=== PATIENT | male | born 1945 | race Caucasian/White ===

== ENCOUNTER 2020-05-05 09:50 | Outpatient (CLI) | payer MEDICARE, BC ==
--- NOTE | 2020-05-05 14:16 | NM ---
Radionucleotide bone scan HISTORY: Prostate cancer. Initial staging. FINDINGS: Slightly increased degenerative type uptake is associated with each shoulder, knee, and the cervical spine. Small focus of uptake at the left face is in an area most commonly associated with paranasal sinus disease. No other areas of unusual uptake are apparent. IMPRESSION : No scintigraphic evidence of metastatic disease. Probable left ethmoid/maxillary sinus disease.
--- NOTE | 2020-05-08 12:44 | CT ---
EXAM: CT chest, abdomen, and pelvis with IV contrast: HISTORY: History prostate cancer with prior radiation therapy. Rising PSA. COMPARISON: None FINDINGS: CT THORAX: Lungs: Dependent atelectasis present. No pulmonary nodule or mass is identified. Pleura: No pleural effusion. Lymph nodes: No enlarged lymph nodes are seen by CT size criteria. Mediastinum: Vascular calcifications are seen in the thoracic aorta. Very small hiatal hernia is pres ent. Chest wall: No abnormalities CT ABDOMEN AND PELVIS: Liver: Enlarged in craniocaudal dimensions measuring 21.9 cm. Liver does demonstrate diminished atten uation relative to the spleen suggesting fatty infiltration. Subcentimeter rounded area of enhancement is seen near the dome of the liver which does appear contiguous with a vessel and probabl y represents a small vascular malformation. Gallbladder: Within normal limits. Pancreas: A 1.2 cm hypodense cystic lesion is seen involving the posterior aspect of the pancreas and the junction of the head and uncinate process of the pancreas. This is separate from the adjacent common duct which is normal in caliber. Spleen: Within normal limits. Adrenal glands: Within normal limits. Kidneys: A 2 mm hypodense lesion superior pole right kidney is present which is difficult to characte rize. There is also a lobulated hypodense lesion involving the midportion left kidney measuring 1.8 cm was suggestion of a thin septation within this cystic lesion. This cannot be characterized as a si mple cyst based on this examination. However, this lesion was seen on MRI examination 2019, and although incompletely imaged, demonstrated characteristics suggestive of a cyst on that exam. Nonobstructing 2 to 3 mm calculi are seen scattered in each kidney. There is mild caliectasis on the left of uncertain etiology. No ureteral calculus is utilized. Urinary Bladder: The urinary bladder is unremarkable. Reproductive organs: Within normal limits for patient's age. Bowel: Evidence of colonic diverticulosis with small to moderate amount retained fecal material seen throughout the colon. Loops of small bowel are normal in caliber. Adenopathy:No lymphadenopathy within the abdomen or pelvis. Peritoneum: No free fluid or fluid collection is seen. No free intraperitoneal gas is identified. Abdominal wall: There is fatty replacement of several bilateral inguinal lymph nodes. Osseous structures: Postoperative changes are seen at the lumbosacral junction. Degenerative change a re seen in the thoracic and lumbar spine. Bilateral hip osteoarthritis is present. No suspicious lytic or sclerotic osseous lesions are identified. There is a sclerotic lesion posterior right acetab ulum demonstrating characteristics most compatible with a bone island. IMPRESSION: 1. Small less than 1.5 cm cystic lesion posterior aspect head of the pancreas. According to ACR white paper guidelines follow-up evaluation with CT scan or MRI in 2 years is recommended for patient of this age. 2. Cystic lesion lateral aspect midportion left kidney with thin linear septation. This does not demo nstrate an attenuation coefficient compatible with a cyst. This lesion was partially imaged on MRI lumbar spine on 03/22/2019 which demonstrated a cystic appearance, and although incompletely imaged on that exam, this lesion does appear stable in size. This cannot be characterized as a simple cyst. Follow-up CT abdomen with and without IV contrast is recommended. 3. Nonobstructing bilateral renal calculi. 4. No CT findings to suggest metastatic disease involving the chest, abdomen, or pelvis. 5. Small hiatal hernia. Transcribed Date/Time: 05/08/2020 12:44 PM
== END 2020-05-05 09:51 | disposition home or self-care (01) ==
LOC: NM 09:50
PROVIDERS: ATTEND Radiology Radiation Oncology
DX: C61 Malignant neoplasm of prostate (principal); K86.2 Cyst of pancreas; N28.1 Cyst of kidney, acquired; N20.0 Calculus of kidney; K44.9 Diaphragmatic hernia without obstruction or gangrene
CPT/HCPCS: 74177; 78306; 82565; A9503; 71260

== ENCOUNTER 2021-11-20 13:55 | Outpatient (CLI) | payer MEDICARE ==
[2021-11-20] MEDS ORDERED: Iopamidol 370 76% 100 ML VIAL ONE (15:22)
== END 2021-11-20 13:56 | disposition home or self-care (01) ==
LOC: BICCT 13:55
PROVIDERS: ATTEND Radiology Radiation Oncology
DX: C61 Malignant neoplasm of prostate (principal); K86.89 Other specified diseases of pancreas; R97.20 Elevated prostate specific antigen [PSA]; N20.0 Calculus of kidney; K86.2 Cyst of pancreas; Z92.3 Personal history of irradiation
CPT/HCPCS: 74178; 82565; Q9967

== ENCOUNTER 2024-01-15 08:17 | Day surgery (SDC) | payer MEDICARE ==
[2024-01-15 08:49] LABS: #Basophils 0.08 10x3/uL (0.0-0.2); %Basophils 0.5 % (0.0-1.0); %Eosinophils 0.6 % (0.0-10.0); %Monocytes 8.1 % (0.0-10.0); %Neutrophils 81.2 % (42.0-75.0); Hemoglobin 12.4 g/dL (14.0-18.0); Mean Corpuscular HGB CONC 32.6 g/dL (32.0-36.0); Mean Corpuscular Hemoglobin 29.3 pg (27.0-31.0); Mean Corpuscular Volume 89.8 fL (78.0-98.0); Mean Platelet Volume 10.3 fL (7.4-10.4); Platelet Count 164 10x3/uL (130-400); RBC Distribution Width 16.7 % (11.5-14.5); Red Blood Cell (RBC) Count 4.23 mill/uL (4.70-6.10)
[2024-01-15 09:08] LABS: PTT 28.6 sec (22.9-36.1); Prothrombin Time 12.9 sec (12.0-14.7)
[2024-01-15] MEDS ORDERED: fentaNYL 50 mcg/mL 1 mL Vial ONE (10:29)
[2024-01-15] MEDS ORDERED: Sodium Bicarbonate 2.5 MEQ/5 ML SDV ONE (10:30)
[2024-01-15] MEDS ORDERED: Lidocaine 1% w/Epinephrine 1:100K 20 ML VIAL ONE (10:30)
[2024-01-15] MEDS ORDERED: Midazolam HCl 2 mg/2 ml Vial ONE (10:30)
== END 2024-01-15 12:00 | disposition home or self-care (01) ==
LOC: CT 08:17
PROVIDERS: ATTEND Internal Medicine
PROC: 0QB33ZX Excision of Left Pelvic Bone, Percutaneous Approach, Diagnostic (ICD-10-PCS; principal; 2024-01-15)
DX: M99.83 Other biomechanical lesions of lumbar region (principal); C61 Malignant neoplasm of prostate; I10 Essential (primary) hypertension; R35.0 Frequency of micturition; G62.9 Polyneuropathy, unspecified; F33.9 Major depressive disorder, recurrent, unspecified; F41.1 Generalized anxiety disorder; E78.2 Mixed hyperlipidemia; K21.9 Gastro-esophageal reflux disease without esophagitis; Z98.890 Other specified postprocedural states; Z79.899 Other long term (current) drug therapy
CPT/HCPCS: 20225; 77012; 85025; 85610; 85730; 88333; 88334; C2627; J1642; J2250; J3010; 88307; 88311; 88341; 88342; 99152

== ENCOUNTER 2024-04-30 08:45 | Outpatient (CLI) | payer MEDICARE | END 2024-04-30 08:46 | disposition home or self-care (01) | LOC: BICMAMMO 08:45 | PROVIDERS: ATTEND Internal Medicine | DX: M85.89 Other specified disorders of bone density and structure, multiple sites (principal); T38.6X5A Adverse effect of antigonadotrophins, antiestrogens, antiandrogens, not elsewhere classified, initial encounter | CPT/HCPCS: 77080 ==

== ENCOUNTER 2024-05-03 08:43 | Outpatient (CLI) | payer MEDICARE ==
[2024-05-03] MEDS ORDERED: Iopamidol 370 76% 100 ML VIAL ONE (13:14)
== END 2024-05-03 08:44 | disposition home or self-care (01) ==
LOC: NM 08:43
PROVIDERS: ATTEND Internal Medicine
DX: C61 Malignant neoplasm of prostate (principal); C79.51 Secondary malignant neoplasm of bone; D70.8 Other neutropenia; R30.0 Dysuria; N13.30 Unspecified hydronephrosis; M89.9 Disorder of bone, unspecified; R91.1 Solitary pulmonary nodule
CPT/HCPCS: 71260; 74177; 78306; 80053; 84153; A9503; 36415; Q9967

== ENCOUNTER 2024-06-28 08:05 | Outpatient (CLI) | payer MEDICARE | END 2024-06-28 08:06 | disposition home or self-care (01) | LOC: CT 08:05 | PROVIDERS: ATTEND Internal Medicine | DX: C61 Malignant neoplasm of prostate (principal); C79.51 Secondary malignant neoplasm of bone; R30.0 Dysuria; D70.8 Other neutropenia; N13.30 Unspecified hydronephrosis; J98.4 Other disorders of lung; J84.10 Pulmonary fibrosis, unspecified; I70.0 Atherosclerosis of aorta; K76.89 Other specified diseases of liver; N20.0 Calculus of kidney; N32.89 Other specified disorders of bladder; I77.811 Abdominal aortic ectasia; R92.1 Mammographic calcification found on diagnostic imaging of breast; R59.0 Localized enlarged lymph nodes; Z98.890 Other specified postprocedural states | CPT/HCPCS: 36415; 71260; 74177; 78306; 82565 ×2; A9503 ==